=== PATIENT | female | born 1950 | race Caucasian/White ===

== ENCOUNTER → 2018-10-08 10:57 | Outpatient (CLI) | payer MEDICARE, OTHER, SELFPAY ==
--- NOTE | 2018-10-08 | DI.MRI.S_ITS ---
PROCEDURE: MR ANKLE RT WO CON INDICATIONS: Unspecified injury of right foot TECHNIQUE: Noncontrast sagittal T1 spin echo and T2 fast spin echo with fat saturation, axial proton density fast spin echo and T2 fast spin echo with fat saturation, coronal T1 spin echo and T2 fast spin echo with fat saturation through the ankle/hindfoot. COMPARISON: None. FINDINGS: Image quality: Excellent. Bones and joints: No bone marrow contusions or fractures. Small plantar calcaneal enthesophyte is seen. No hindfoot coalitions. No osteochondral injuries of the talar dome. Small amount of tibiotalar and subtalar joint fluid is seen, no gross loose body. Mild soft tissue swelling and edema surrounding ankle joint is seen. Medial structures: Low-grade tenosynovitis of posterior tibial tendon at the level of the subtalar joint is seen. The flexor digitorum longus, and flexor hallucis longus tendons are intact. The posterior tibial neurovascular bundle appears normal within the tarsal tunnel, without extrinsic mass effect. The deep layer (anterior and posterior tibiotalar ligaments) and superficial layer (tibionavicular, tibiospring, and tibiocalcaneal ligaments) of the deltoid ligament appear normal. There is moderate grade sprain/partial thickness tear involving the spring ligament complex. Lateral structures: The anterior talofibular, calcaneofibular, and posterior talofibular ligaments appear intact. More superiorly, the anterior and posterior tibiofibular ligaments appear intact, as is the intermalleolar ligament. The tibiofibular syndesmosis is normal in width at 2 mm or less. The peroneus longus and brevis tendons demonstrate normal location and morphology. Adjacent bony peroneal tubercle and retrotrochlear prominence are normal in size. The sinus tarsi demonstrates normal fatty signal, without edema, fibrosis, or cyst formation. Visualized sinus tarsi components (cervical ligament, interosseous talocalcaneal ligament, roots of the inferior extensor retinaculum) appear normal. The calcaneonavicular and calcaneocuboid components of the bifurcate ligament appear intact. The dorsal calcaneocuboid ligament appears intact. Anterior structures: The tibialis anterior, extensor hallucis longus, and extensor digitorum longus tendons appear intact. The dorsal talonavicular ligament appears intact. Posterior and plantar structures: Achilles tendon is intact. Very mild thickening of the plantar aponeurosis near its insertion on plantar calcaneus. No abductor digiti quinti muscle atrophy to suggest Hall neuropathy. IMPRESSION: 1. No fracture or dislocation. No marrow edema. Small plantar calcaneal enthesophyte with mildly thickened adjacent plantar fascia and suggest clinical correlation for low-grade plantar fasciitis. 2. Low-grade tenosynovitis involving the posterior tibial tendon at the level of subtalar joint. No ankle tendon rupture. 3. Moderate grade sprain/partial thickness tear involving the spring ligament complex. Rest of ankle ligaments are grossly intact. 4. Mild soft tissue swelling around ankle joint. Small amount of ankle joint effusion, no gross loose body. Dictated by: Wilmar Joy M.D. on 10/08/2018 at 12:24 Approved by: Wilmar Joy M.D. on 10/08/2018 at 12:35
== END ==
PROVIDERS: PCP Family Medicine; Visit Provider Podiatrist
DX: S99.921A Unspecified injury of right foot, initial encounter (principal); M65.871 Other synovitis and tenosynovitis, right ankle and foot; M77.31 Calcaneal spur, right foot; S93.491A Sprain of other ligament of right ankle, initial encounter; M79.89 Other specified soft tissue disorders; R26.2 Difficulty in walking, not elsewhere classified; M79.671 Pain in right foot
CPT/HCPCS: 73721

== ENCOUNTER → 2020-07-12 09:36 | Outpatient (CLI) | payer MEDICARE, OTHER, SELFPAY ==
--- NOTE | 2020-07-12 09:39 | DI.MRI.S_ITS ---
PROCEDURE: MR SHOULDER LT WO CON INDICATIONS: Pain in left shoulder TECHNIQUE: Noncontrast oblique coronal T2 fast spin echo with fat saturation, oblique sagittal T1 spin echo and T2 fast spin echo with fat saturation, axial T1 spin echo and T2 fast spin echo with fat saturation through the shoulder. COMPARISON: None. FINDINGS: Rotator cuff: Supraspinatus and infraspinatus tendinopathy with low-grade bursal and articular surface fraying. Small partial-thickness articular sided tear of supraspinatus tendon at the junction of the critical zone and footprint there is also subscapularis tendinopathy and interstitial tearing, thickening. The teres minor tendon appears intact. No atrophy of the rotator cuff muscles although there is fatty infiltration of the infraspinatus.. Bones and bursae: No bone marrow contusions or fractures. Moderate acromioclavicular joint degeneration. Mild glenohumeral joint degeneration Acromion demonstrates conventional anatomy, without an os acromiale. Moderate subacromial-subdeltoid bursitis. Capsule and soft tissues: Labrum: Ill-defined macerated tear involving the superior , anterior, and anteroinferior segments of the labrum. There is thickening of the inferior glenohumeral ligament which is not well visualized. This finding could be chronic. Long head of the biceps tendon intact. The rotator interval appears normal, without fibrosis. Coracohumeral ligament intact. IMPRESSION: Small partial thickness articular sided tear of the supraspinatus tendon, and articular and bursal surface fraying. Subscapularis tendinopathy and interstitial tearing, and thickening. Moderate subacromial-subdeltoid bursitis Circumferential ill-defined macerated tear of the labrum involving the superior, anterior and anteroinferior segments. Age-indeterminate sprain of the inferior glenohumeral ligament. Dictated by: Kingsley Mills M.D. on 07/12/2020 at 10:44 Approved by: Kingsley Mills M.D. on 07/12/2020 at 10:58
== END ==
PROVIDERS: PCP Physician Assistant Medical; Referring Provider Family Medicine; Visit Provider Family Medicine
DX: M25.512 Pain in left shoulder (principal); S46.812A Strain of other muscles, fascia and tendons at shoulder and upper arm level, left arm, initial encounter; M75.52 Bursitis of left shoulder; S43.432A Superior glenoid labrum lesion of left shoulder, initial encounter
CPT/HCPCS: 73221

== ENCOUNTER 2020-12-01 12:44 | Emergency (ER) | payer MEDICARE, OTHER, SELFPAY ==
[2020-12-01] VITALS (32 sets, daily range): BP systolic 119–183; BP diastolic 57–84; PULSE 78–92; RESP 20–40; TEMP 31.5–37.8; O2SAT 35–96
--- NOTE | 2020-12-01 13:01 | DI.RAD.S_ITS ---
PROCEDURE: XR CHEST 1V INDICATIONS: Short of breath AND CENTAL LINE PLACEMENT TECHNIQUE: One view of the chest was acquired. COMPARISON: [facility], , CHEST 2 VIEW, 08/11/2008, 15:58. FINDINGS: Surgical changes and devices: There is a right-sided central line seen, with the tip overlying the inferior aspect of the superior vena cava, 1-2 cm above the cavoatrial junction. Lungs and pleura: Severe bilateral patchy interstitial type infiltrates are seen. Low lung volumes are noted. This causes a crowded appearance to the lung markings and limits evaluation. No pleural effusions or pneumothorax. Mediastinum: Cardiac and mediastinal silhouettes are partially obscured, yet are regarded to be mildly enlarged. Bones and chest wall: No suspicious bony lesions. Age-appropriate bony degenerative changes are seen. Overlying soft tissues appear unremarkable. IMPRESSION: Bilateral interstitial infiltrates are seen. Please consider COVID pneumonia. A right-sided central line is seen, tip overlying the inferior aspect of the superior vena cava. Dictated by: Willem Rodriges M.D. on 12/01/2020 at 12:41 Approved by: Willem Rodriges M.D. on 12/01/2020 at 12:42
--- NOTE | 2020-12-01 13:38 | ED_ITS ---
HPI - General Adult General Chief complaint: Shortness of Breath/Dyspnea Stated complaint: severe dehydrated/altered mental status/diabetic Time Seen by Provider: 12/01/20 13:01 History of Present Illness HPI narrative: 70-year-old woman brought in by her daughter with a known history of COVID she has been sick for the last week additional medical issues include diabetes, hypertension, hyperlipidemia. She is in extreme respiratory distress, extremely fatigued has difficulty answering questions and remainder of history is not obtainable at this time. Related Data Home Medications Medication Instructions Recorded Confirmed insulin glargine 100 unit/mL 50 unit SQ QDAY #0 09/19/11 12/01/20 subcutaneous solution (Lantus U-100 Insulin) lisinopril 5 mg tablet 5 mg PO QDAY #0 09/19/11 12/01/20 simvastatin 20 mg tablet 20 mg PO HS #0 09/19/11 benzonatate 100 mg capsule 100 mg PO TID 12/01/20 12/01/20 glimepiride 2 mg tablet 2 mg PO DAILY 12/01/20 12/01/20 insulin glulisine U-100 100 5 unit SUBCUT QACDINNER 12/01/20 12/01/20 unit/mL subcutaneous cartridge loperamide 2 mg tablet (Imodium 2 mg PO Q6H PRN 12/01/20 12/01/20 A-D) rosuvastatin 10 mg tablet 10 mg PO DAILY 12/01/20 12/01/20 Allergies Allergy/AdvReac Type Severity Reaction Status Date / Time cephalexin [From KEFLEX] Allergy Intermediate HIVES Verified 12/01/20 13:42 Review of Systems Review of Systems ROS Unobtainable: Unobtainable due to medical condition Patient History Medical History COVID-19 Diabetes Hyperlipidemia Hypertension Exam Narrative Exam Narrative: General: Acute respiratory distress oxygen saturation 34% on room air, confused HEENT: Dry mucous membranes, normal sclera with reactive pupils, Neck: No JVD, supple, completely collapsible internal jugular vein Respiratory: Lungs with mild scattered wheeze and pops throughout all lung reece, poor respiratory movement Cardiac: Regular rate and rhythm no murmurs no bruits Abdomen: Obese, Soft, no pain behaviors with palpation, no flank pain Skin: Mottled and cool Neurologic: Moving all extremities, minimal response to questions Extremities: No trauma, mottled arms and legs to upper thighs and torso Psych: Acutely altered Initial Vital Signs Initial Vital Signs: Vital Signs Temperature 100.1 F H 12/01/20 12:44 Pulse Rate 82 12/01/20 12:44 Respiratory Rate 40 H 12/01/20 12:44 Blood Pressure 183/79 H 12/01/20 12:44 Pulse Oximetry 35 L 12/01/20 12:44 Course Orders Ordered: ED Orders 12/01/20 13:01 XR chest 1V Stat Arterial Blood Gas Stat High flow/High humidity nasal STAT 12/01/20 13:16 Arterial Blood Gas Stat 12/01/20 13:28 Complete Blood Count AUTO DIFF Stat Comprehensive Metabolic Panel Stat D Dimer Stat Ferritin Stat Magnesium Stat NT-proBNP (BNP-Adult 18+) Stat Partial Thromboplastin Time DAILY Procalcitonin Stat Prothrombin Time INR Stat Troponin & CK Cardiac Panel Stat 12/01/20 13:34 Respiratory Panel (Film Array) Stat 12/01/20 13:37 Blood Culture Stat 12/01/20 13:39 High flow/High humidity nasal STAT 12/01/20 16:02 EKG-12 Lead Stat 12/01/20 16:18 Arterial Blood Gas Stat 12/01/20 16:20 Comprehensive Metabolic Panel Stat Troponin I Stat 12/01/20 17:15 Partial Thromboplastin Time Stat 12/01/20 23:15 PTT [Partial Thromboplastin Time] Q6H 12/02/20 05:00 Hemoglobin and Hematocrit DAILY 12/02/20 05:15 PTT [Partial Thromboplastin Time] Q6H 12/02/20 11:15 PTT [Partial Thromboplastin Time] Q6H 12/02/20 17:15 PTT [Partial Thromboplastin Time] Q6H Partial Thromboplastin Time DAILY 12/03/20 17:15 Partial Thromboplastin Time DAILY 12/04/20 17:15 Partial Thromboplastin Time DAILY 12/05/20 17:15 Partial Thromboplastin Time DAILY 12/06/20 17:15 Partial Thromboplastin Time DAILY 12/07/20 17:15 Partial Thromboplastin Time DAILY Sodium Chloride (Normal Saline 0.9%) 1,000 mls @ 150 mls/hr IV CONT KATHLEEN Heparin Sodium/Dextrose (Heparin Drip) 25,000 unit in 500 mls @ 17.745 mls/hr IV CONT KATHLEEN; Protocol Last Admin: 12/01/20 17:37 Dose: 12 units/kg/hr, 17.745 mls/hr Documented by: Discontinued Medications Albuterol (Albuterol 2.5 Mg/3 Ml Neb (Adult)) 2.5 mg INH NOW ONE Stop: 12/01/20 13:05 Last Admin: 12/01/20 15:17 Dose: 2.5 mg Documented by: HERNESTO Dexamethasone (Dexamethasone 10 Mg/Ml Vial) 6 mg IV NOW ONE Stop: 12/01/20 16:05 Last Admin: 12/01/20 16:22 Dose: 6 mg Documented by: DEVIN Heparin Sodium (Porcine) (Heparin 5,000 Unit/Ml Vial) 4,000 unit IV NOW ONE Stop: 12/01/20 17:15 Last Admin: 12/01/20 17:35 Dose: 4,000 unit Documented by: Sodium Chloride (Normal Saline 0.9%) 1,000 mls @ 1,000 mls/hr IV BOLUS ONE Stop: 12/01/20 14:38 Last Infusion: 12/01/20 15:05 Dose: 0 mls/hr Documented by: Admin: 12/01/20 13:45 Dose: 1,000 mls/hr Documented by: DEVIN Ceftriaxone Sodium 2,000 mg/ (Sodium Chloride) 100 mls @ 200 mls/hr IV NOW ONE Stop: 12/01/20 16:02 Last Admin: 12/01/20 16:20 Dose: 200 mls/hr Documented by: DEVIN Azithromycin 500 mg/ Dextrose 250 mls @ 250 mls/hr IV NOW ONE Stop: 12/01/20 16:02 Last Admin: 12/01/20 17:31 Dose: 250 mls/hr Documented by: Sodium Chloride (Normal Saline 0.9%) 1,000 mls @ 1,000 mls/hr IV BOLUS ONE Stop: 12/01/20 17:00 Last Admin: 12/01/20 16:22 Dose: 1,000 mls/hr Documented by: DEVIN Vital Signs Vital signs: Vital Signs - 8 hr 12/01/20 12:44 12/01/20 13:02 12/01/20 13:03 Temperature 100.1 F H Pulse Rate 82 85 86 Respiratory Rate 40 H Blood Pressure 183/79 H 152/71 H 155/75 H Pulse Oximetry 35 L 90 L 91 12/01/20 13:15 12/01/20 13:30 12/01/20 13:45 Temperature Pulse Rate 91 H 92 H 86 Respiratory Rate 36 H Blood Pressure 183/79 H Pulse Oximetry 90 L 92 95 12/01/20 14:00 12/01/20 14:01 12/01/20 14:15 Temperature Pulse Rate 83 83 84 Respiratory Rate 31 H 29 H 28 H Blood Pressure 137/69 132/65 Pulse Oximetry 96 96 95 12/01/20 14:30 12/01/20 14:44 12/01/20 14:45 Temperature Pulse Rate 84 90 87 Respiratory Rate 36 H 30 H Blood Pressure 130/65 133/67 Pulse Oximetry 96 94 94 12/01/20 15:00 12/01/20 15:15 12/01/20 15:16 Temperature Pulse Rate 89 84 81 Respiratory Rate 28 H 28 H 24 Blood Pressure 167/84 H 142/64 H Pulse Oximetry 92 92 91 12/01/20 15:17 12/01/20 15:27 12/01/20 15:30 Temperature Pulse Rate 80 81 81 Respiratory Rate 26 H 26 H 22 Blood Pressure 121/60 Pulse Oximetry 91 90 L 90 L 12/01/20 15:45 12/01/20 16:00 12/01/20 16:15 Temperature Pulse Rate 84 80 84 Respiratory Rate 20 35 H 31 H Blood Pressure 133/65 122/61 136/71 Pulse Oximetry 92 92 12/01/20 16:30 12/01/20 16:45 12/01/20 17:00 Temperature Pulse Rate 83 83 78 Respiratory Rate 33 H 38 H 35 H Blood Pressure 135/71 Pulse Oximetry 91 90 L 91 12/01/20 17:15 12/01/20 17:30 12/01/20 17:45 Temperature Pulse Rate 79 85 86 Respiratory Rate 34 H 35 H 36 H Blood Pressure Pulse Oximetry 93 85 L 12/01/20 17:49 12/01/20 18:00 12/01/20 18:15 Temperature Pulse Rate 85 80 82 Respiratory Rate 30 H 31 H 36 H Blood Pressure 137/65 119/57 L 146/73 H Pulse Oximetry 79 L 86 L 86 L 12/01/20 18:25 12/01/20 18:30 Temperature Pulse Rate 80 Respiratory Rate 37 H Blood Pressure 146/73 H 139/69 Pulse Oximetry 93 Medical Decision Making Lab Data Result diagrams: 12/01/20 13:28 12/01/20 16:20 Labs: Lab Results 12/01/20 12/01/20 12/01/20 Range/Units 13:16 13:28 13:28 WBC 14.0 H (4.5-11.0) X10^3/uL RBC 3.71 L (4.0-5.2) X10^6/uL Hgb 10.8 L (12.0-16.0) g/dL Hct 32.7 L (36-46) % MCV 88.1 (80-100) fL MCH 29.1 (26-34) PG MCHC 33.0 (30-36) % RDW 13.1 (11.6-14.8) % Plt Count 290 (150-400) X10^3/uL Neut % (Auto) 90.3 H (50-75) % Lymph % (Auto) 5.4 L (25-40) % [place] % (Auto) 4.0 (3-14) % Eos % (Auto) 0.0 L (2-4) % Baso % (Auto) 0.3 (0-2) % Neut # (Auto) 12979 H (3170-1457) /uL Lymph # (Auto) 800 L (4969-9008) /uL [place] # (Auto) 600 (0-900) /uL Eos # (Auto) 0 (0-450) /uL Baso # (Auto) 0 (0-100) /uL PT 12.6 (10.1-12.7) SECONDS INR 1.1 (0.9-1.3) APTT (26.4-36.2) SECONDS D-Dimer (<230) ng/mL ABG pH 7.40 (7.35-7.45) ABG pCO2 33.5 L (35-45) mmHg ABG pO2 58 L (80-100) mmHg ABG HCO3 21 L (22-26) mmol/L ABG Total CO2 22 (21-31) mmol/L ABG O2 Saturation 90 L (95-100) % ABG Base Excess -4.0 L (-2-2) mmol/L FiO2 100 Sodium (137-145) mmol/L Potassium (3.4-5.1) mmol/L Chloride (98-107) mmol/L Carbon Dioxide (22-32) mmol/L BUN (7-17) mg/dL Creatinine (0.52-1.04) mg/dL Estimated GFR (>60) mL/min BUN/Creatinine Ratio (6-22) Glucose (80-110) mg/dL Calcium (8.4-10.2) mg/dL Magnesium (1.6-2.3) mg/dL Ferritin (11-264) ng/mL Total Bilirubin (0.2-1.3) mg/dL AST (14-36) IU/L ALT (<35) IU/L Alkaline Phosphatase (38-126) U/L Total Creatine Kinase (30-135) U/L CK-MB (CK-2) (<2.37) ng/mL CK-MB (CK-2) Rel Index (1.5-5.0) % Troponin I (0.01-0.034) ng/mL NT-Pro-B Natriuret Pep (<125) pg/mL Total Protein (6.3-8.2) g/dL Albumin (3.5-5.0) g/dL Globulin (1.7-4.1) g/dL Albumin/Globulin Ratio (1.0-2.8) Procalcitonin (<0.5) ng/mL Chlamy pneumoniae PCR (Not Detect) Adenovirus (PCR) (Not Detect) B. pertussis DNA (PCR) (Not Detecte) B.parapertussis DNA PCR (Not Detecte) Coronavirus OC43 (PCR) (Not Detect) Coronavirus HKU1 (PCR) (Not Detect) Coronavirus 229E (PCR) (Not Detect) SARS-CoV-2 (PCR) (Not Detecte) Coronavirus NL63 (PCR) (Not Detect) Human Metapneumovir PCR (Not Detect) Influenza Type A (PCR) (Not Detect) Influenza Type B (PCR) (Not Detect) M. pneumoniae (PCR) (Not Detect) Parainfluenza 1 (PCR) (Not Detect) Parainfluenza 2 (PCR) (Not Detect) Parainfluenza 3 (PCR) (Not Detect) Parainfluenza 4 (PCR) (Not Detect) RSV (PCR) (Not Detect) Entero/Rhino (PCR) (Not Detect) 12/01/20 12/01/20 12/01/20 Range/Units 13:28 13:28 13:28 WBC (4.5-11.0) X10^3/uL RBC (4.0-5.2) X10^6/uL Hgb (12.0-16.0) g/dL Hct (36-46) % MCV (80-100) fL MCH (26-34) PG MCHC (30-36) % RDW (11.6-14.8) % Plt Count (150-400) X10^3/uL Neut % (Auto) (50-75) % Lymph % (Auto) (25-40) % [place] % (Auto) (3-14) % Eos % (Auto) (2-4) % Baso % (Auto) (0-2) % Neut # (Auto) (1307-9910) /uL Lymph # (Auto) (8078-7063) /uL [place] # (Auto) (0-900) /uL Eos # (Auto) (0-450) /uL Baso # (Auto) (0-100) /uL PT (10.1-12.7) SECONDS INR (0.9-1.3) APTT 26 L (26.4-36.2) SECONDS D-Dimer 1766 H (<230) ng/mL ABG pH (7.35-7.45) ABG pCO2 (35-45) mmHg ABG pO2 (80-100) mmHg ABG HCO3 (22-26) mmol/L ABG Total CO2 (21-31) mmol/L ABG O2 Saturation (95-100) % ABG Base Excess (-2-2) mmol/L FiO2 Sodium 129 L (137-145) mmol/L Potassium 6.0 H (3.4-5.1) mmol/L Chloride 99 (98-107) mmol/L Carbon Dioxide 23 (22-32) mmol/L BUN 56 H (7-17) mg/dL Creatinine 1.77 H (0.52-1.04) mg/dL Estimated GFR 28.5 L (>60) mL/min BUN/Creatinine Ratio 31.6 H (6-22) Glucose 314 H (80-110) mg/dL Calcium 8.6 (8.4-10.2) mg/dL Magnesium 2.6 H (1.6-2.3) mg/dL Ferritin 919 H (11-264) ng/mL Total Bilirubin 0.4 (0.2-1.3) mg/dL AST 47 H (14-36) IU/L ALT 20 (<35) IU/L Alkaline Phosphatase 133 H (38-126) U/L Total Creatine Kinase 223 H (30-135) U/L CK-MB (CK-2) 1.59 (<2.37) ng/mL CK-MB (CK-2) Rel Index 0.7 L (1.5-5.0) % Troponin I 0.149 H* (0.01-0.034) ng/mL NT-Pro-B Natriuret Pep 1790 H (<125) pg/mL Total Protein 6.7 (6.3-8.2) g/dL Albumin 3.4 L (3.5-5.0) g/dL Globulin 3.3 (1.7-4.1) g/dL Albumin/Globulin Ratio 1.0 (1.0-2.8) Procalcitonin 2.18 H (<0.5) ng/mL Chlamy pneumoniae PCR (Not Detect) Adenovirus (PCR) (Not Detect) B. pertussis DNA (PCR) (Not Detecte) B.parapertussis DNA PCR (Not Detecte) Coronavirus OC43 (PCR) (Not Detect) Coronavirus HKU1 (PCR) (Not Detect) Coronavirus 229E (PCR) (Not Detect) SARS-CoV-2 (PCR) (Not Detecte) Coronavirus NL63 (PCR) (Not Detect) Human Metapneumovir PCR (Not Detect) Influenza Type A (PCR) (Not Detect) Influenza Type B (PCR) (Not Detect) M. pneumoniae (PCR) (Not Detect) Parainfluenza 1 (PCR) (Not Detect) Parainfluenza 2 (PCR) (Not Detect) Parainfluenza 3 (PCR) (Not Detect) Parainfluenza 4 (PCR) (Not Detect) RSV (PCR) (Not Detect) Entero/Rhino (PCR) (Not Detect) 12/01/20 12/01/2012/01/21 Range/Units 13:34 13:34 16:20 WBC (4.5-11.0) X10^3/uL RBC (4.0-5.2) X10^6/uL Hgb (12.0-16.0) g/dL Hct (36-46) % MCV (80-100) fL MCH (26-34) PG MCHC (30-36) % RDW (11.6-14.8) % Plt Count (150-400) X10^3/uL Neut % (Auto) (50-75) % Lymph % (Auto) (25-40) % [place] % (Auto) (3-14) % Eos % (Auto) (2-4) % Baso % (Auto) (0-2) % Neut # (Auto) (3391-4959) /uL Lymph # (Auto) (9181-8891) /uL [place] # (Auto) (0-900) /uL Eos # (Auto) (0-450) /uL Baso # (Auto) (0-100) /uL PT (10.1-12.7) SECONDS INR (0.9-1.3) APTT (26.4-36.2) SECONDS D-Dimer (<230) ng/mL ABG pH (7.35-7.45) ABG pCO2 (35-45) mmHg ABG pO2 (80-100) mmHg ABG HCO3 (22-26) mmol/L ABG Total CO2 (21-31) mmol/L ABG O2 Saturation (95-100) % ABG Base Excess (-2-2) mmol/L FiO2 Sodium (137-145) mmol/L Potassium (3.4-5.1) mmol/L Chloride (98-107) mmol/L Carbon Dioxide (22-32) mmol/L BUN (7-17) mg/dL Creatinine (0.52-1.04) mg/dL Estimated GFR (>60) mL/min BUN/Creatinine Ratio (6-22) Glucose (80-110) mg/dL Calcium (8.4-10.2) mg/dL Magnesium (1.6-2.3) mg/dL Ferritin (11-264) ng/mL Total Bilirubin (0.2-1.3) mg/dL AST (14-36) IU/L ALT (<35) IU/L Alkaline Phosphatase (38-126) U/L Total Creatine Kinase (30-135) U/L CK-MB (CK-2) (<2.37) ng/mL CK-MB (CK-2) Rel Index (1.5-5.0) % Troponin I 0.246 H* (0.01-0.034) ng/mL NT-Pro-B Natriuret Pep (<125) pg/mL Total Protein (6.3-8.2) g/dL Albumin (3.5-5.0) g/dL Globulin (1.7-4.1) g/dL Albumin/Globulin Ratio (1.0-2.8) Procalcitonin (<0.5) ng/mL Chlamy pneumoniae PCR Not detected (Not Detect) Adenovirus (PCR) Not detected (Not Detect) B. pertussis DNA (PCR) Not detected (Not Detecte) B.parapertussis DNA PCR Not detected (Not Detecte) Coronavirus OC43 (PCR) Not detected (Not Detect) Coronavirus HKU1 (PCR) Not detected (Not Detect) Coronavirus 229E (PCR) Not detected (Not Detect) SARS-CoV-2 (PCR) Detected H Cancelled (Not Detecte) Coronavirus NL63 (PCR) Not detected (Not Detect) Human Metapneumovir PCR Not detected (Not Detect) Influenza Type A (PCR) Not detected (Not Detect) Influenza Type B (PCR) Not detected (Not Detect) M. pneumoniae (PCR) Not detected (Not Detect) Parainfluenza 1 (PCR) Not detected (Not Detect) Parainfluenza 2 (PCR) Not detected (Not Detect) Parainfluenza 3 (PCR) Not detected (Not Detect) Parainfluenza 4 (PCR) Not detected (Not Detect) RSV (PCR) Not detected (Not Detect) Entero/Rhino (PCR) Not detected (Not Detect) 12/01/20 Range/Units 16:20 WBC (4.5-11.0) X10^3/uL RBC (4.0-5.2) X10^6/uL Hgb (12.0-16.0) g/dL Hct (36-46) % MCV (80-100) fL MCH (26-34) PG MCHC (30-36) % RDW (11.6-14.8) % Plt Count (150-400) X10^3/uL Neut % (Auto) (50-75) % Lymph % (Auto) (25-40) % [place] % (Auto) (3-14) % Eos % (Auto) (2-4) % Baso % (Auto) (0-2) % Neut # (Auto) (3364-7801) /uL Lymph # (Auto) (6498-3800) /uL [place] # (Auto) (0-900) /uL Eos # (Auto) (0-450) /uL Baso # (Auto) (0-100) /uL PT (10.1-12.7) SECONDS INR (0.9-1.3) APTT (26.4-36.2) SECONDS D-Dimer (<230) ng/mL ABG pH (7.35-7.45) ABG pCO2 (35-45) mmHg ABG pO2 (80-100) mmHg ABG HCO3 (22-26) mmol/L ABG Total CO2 (21-31) mmol/L ABG O2 Saturation (95-100) % ABG Base Excess (-2-2) mmol/L FiO2 Sodium 131 L (137-145) mmol/L Potassium 6.0 H (3.4-5.1) mmol/L Chloride 102 (98-107) mmol/L Carbon Dioxide 23 (22-32) mmol/L BUN 54 H (7-17) mg/dL Creatinine 1.62 H (0.52-1.04) mg/dL Estimated GFR 31.6 L (>60) mL/min BUN/Creatinine Ratio 33.3 H (6-22) Glucose 266 H (80-110) mg/dL Calcium 8.3 L (8.4-10.2) mg/dL Magnesium (1.6-2.3) mg/dL Ferritin (11-264) ng/mL Total Bilirubin 0.4 (0.2-1.3) mg/dL AST 47 H (14-36) IU/L ALT 19 (<35) IU/L Alkaline Phosphatase 121 (38-126) U/L Total Creatine Kinase (30-135) U/L CK-MB (CK-2) (<2.37) ng/mL CK-MB (CK-2) Rel Index (1.5-5.0) % Troponin I (0.01-0.034) ng/mL NT-Pro-B Natriuret Pep (<125) pg/mL Total Protein 6.5 (6.3-8.2) g/dL Albumin 3.2 L (3.5-5.0) g/dL Globulin 3.3 (1.7-4.1) g/dL Albumin/Globulin Ratio 1.0 (1.0-2.8) Procalcitonin (<0.5) ng/mL Chlamy pneumoniae PCR (Not Detect) Adenovirus (PCR) (Not Detect) B. pertussis DNA (PCR) (Not Detecte) B.parapertussis DNA PCR (Not Detecte) Coronavirus OC43 (PCR) (Not Detect) Coronavirus HKU1 (PCR) (Not Detect) Coronavirus 229E (PCR) (Not Detect) SARS-CoV-2 (PCR) (Not Detecte) Coronavirus NL63 (PCR) (Not Detect) Human Metapneumovir PCR (Not Detect) Influenza Type A (PCR) (Not Detect) Influenza Type B (PCR) (Not Detect) M. pneumoniae (PCR) (Not Detect) Parainfluenza 1 (PCR) (Not Detect) Parainfluenza 2 (PCR) (Not Detect) Parainfluenza 3 (PCR) (Not Detect) Parainfluenza 4 (PCR) (Not Detect) RSV (PCR) (Not Detect) Entero/Rhino (PCR) (Not Detect) Imaging Data Chest x-ray: Radiologist's Impression: FINDINGS: Surgical changes and devices: There is a right-sided central line seen, with the tip overlying the inferior aspect of the superior vena cava, 1-2 cm above the cavoatrial junction. Lungs and pleura: Severe bilateral patchy interstitial type infiltrates are seen. Low lung volumes are noted. This causes a crowded appearance to the lung markings and limits evaluation. No pleural effusions or pneumothorax. Mediastinum: Cardiac and mediastinal silhouettes are partially obscured, yet are regarded to be mildly enlarged. Bones and chest wall: No suspicious bony lesions. Age-appropriate bony degenerative changes are seen. Overlying soft tissues appear unremarkable. IMPRESSION: Bilateral interstitial infiltrates are seen. Please consider COVID pneumonia. A right-sided central line is seen, tip overlying the inferior aspect of the superior vena cava. Dictated by: Willem Rodriges M.D. on 12/01/2020 at 12:41 MDM Narrative Medical decision making narrative: 70-year-old woman with known COVID presents in respiratory extremis with oxygen saturations at 34%. With 100% non- rebreather she was up to the low 90s and with high-flow oxygen is in the 89-91% range. Patient is awake alert enough to have a very clear end of life discussion. She absolutely wants to be full code and full intubation if required. She was very clear on this. After initial lab review she is obviously volume depleted with acute kidney injury potassium of 6 bilateral pneumonia that is very likely COVID. Will give her another L of fluid recheck labs obtain an EKG and recheck troponin. Ceftriaxone and azithromycin as well as Decadron and re-evaluate after that to see which hospital and level of care will be most appropriate for her. 330 reviewed with [facility]. Will wait for 2nd round of labs to come back she may will be too critical for care at [place]. 400 no bed capacity is [facility] in [facility],. Krissy obrien in [place] may have ICU COVID bed available 515 Second troponin returns at 0.246. Heparin will be started. EKG shows no acute changes. All consistent with non STEMI verses demand ischemia. D-dimer is elevated. At this point she is too critically ill to who take to the CT scanner heparin is started for the non STEMI so treatment is already initiated. Awaiting [facility] results and call back from Krissy Obrien [address] Dr Watson, Director Of Customer Acquisition Jaye Obrien. Accepts care. Findings are reviewed. [facility] will be contacted. Will continue to try avoid intubation. 605 Air lift cannot do high-flow for transport. Will trial BiPAP right now to see how she tolerates this to see we can avoid intubation for transport. If she does not tolerate BiPAP will need to be intubated prior to transport 615 Discussed care and possible intubation with , Rashi Hathaway [phone]. ( is likely covid + positive too. He seems to be improving) 640 Airlift here. Pt has been on bipap for about 15 min and seems to be tolerating it. sats 92% with 100% O2 Critical Care Time Critical Care Time Critical Care Time: Yes Total Critical Care Time: 183 Attestation: Critical care time is separate from other billable procedures. There is a high probability of a significant, sudden or life-threatening deterioration that requires my full and direct attention, intervention and personal management. This critical care time includes consultation with family and other consulting doctors, review of records, and interpretation of data from labs, EKGs and imaging as well as managements of acute respiratory failure secondary to severe COVID pneumonia with ongoing NSTEMI need for transfer with significant natural remedy consultant discussions. Discharge Plan Departure Patient Disposition: [facility] Clinical Impression: COVID-19, Acute non-ST elevation myocardial infarction (NSTEMI) Respiratory failure Qualifiers: Chronicity: acute Respiratory failure complication: hypoxia Qualified Code(s): J96.01 - Acute respiratory failure with hypoxia Prescriptions: No Action simvastatin 20 MG tablet 20 mg PO HS Qty: 0 RF: 0 lisinopril 5 MG tablet 5 mg PO QDAY Qty: 0 RF: 0 Lantus U-100 Insulin 100 UNIT/1 ML solution 50 unit SQ QDAY Qty: 0 RF: 0 glimepiride 2 mg Tablet 2 mg PO DAILY RF: 0 benzonatate 100 mg Capsule 100 mg PO TID RF: 0 loperamide [Imodium A-D] 2 mg Tablet 2 mg PO Q6H PRN (Reason: Diarrhea) RF: 0 rosuvastatin 10 mg Tablet 10 mg PO DAILY RF: 0 Apidra U-100 Insulin 100 unit/mL Cartridge 5 unit SUBCUT QACDINNER RF: 0 Referrals: Asya Pardo PA-C [Primary Care Provider] -
[2020-12-01 13:41] LABS: Add Manual Diff / Slide Review NO; Basophils Absolute Auto 0 /uL (0-100); Basophils Percent Auto 0.3 % (0-2); Eosinophils Absolute Auto 0 /uL (0-450); Hematocrit 32.7 % (36-46); Hemoglobin 10.8 g/dL (12.0-16.0); Lymphocytes Absolute Auto 800 /uL (1100-4500); Lymphocytes Percent Auto 5.4 % (25-40); Mean Corpuscular Hemoglobin 29.1 PG (26-34); Mean Corpuscular Volume 88.1 fL (80-100); Monocytes Absolute Auto 600 /uL (0-900); Neutrophils Absolute Auto 12600 /uL (1500-7000); Neutrophils Percent Auto 90.3 % (50-75); Platelet Count 290 X10^3/uL (150-400); Red Blood Cell Count 3.71 X10^6/uL (4.0-5.2); Red Cell Distribution Width 13.1 % (11.6-14.8)
[2020-12-01 13:44] LABS: INR 1.1 (0.9-1.3); Prothrombin Time 12.6 SECONDS (10.1-12.7)
[2020-12-01] MEDS: SODIUM CHLORIDE 0.9% 1,000 ML 1000 ML IV ×2 (13:45→16:22)
--- NOTE | 2020-12-01 13:52 | PC.NURSE ---
pt dx with COVID 7 days ago Pt arrived vbery pale,mottling noted on extremities,RA O2 35%. Pt confused and difficulty following commands initially.
[2020-12-01 13:53] LABS: Alanine Aminotransferase 20 IU/L (<35); Albumin 3.4 g/dL (3.5-5.0); Alkaline Phosphatase 133 U/L (38-126); Aspartate Aminotransferase 47 IU/L (14-36); BUN Creatinine Ratio 31.6 (6-22); Bilirubin Total 0.4 mg/dL (0.2-1.3); Blood Urea Nitrogen 56 mg/dL (7-17); Calcium 8.6 mg/dL (8.4-10.2); Carbon Dioxide 23 mmol/L (22-32); Chloride 99 mmol/L (98-107); Creatine Kinase 223 U/L (30-135); Estimated Glomerular Filt Rate 28.5 mL/min (>60); Globulin 3.3 g/dL (1.7-4.1); Glucose 314 mg/dL (80-110); HEMOLYSIS < 15 (0-50); Magnesium 2.6 mg/dL (1.6-2.3); Sodium 129 mmol/L (137-145); Total Protein 6.7 g/dL (6.3-8.2)
--- NOTE | 2020-12-01 13:53 | PC.NURSE ---
post central line placement
[2020-12-01 14:02] LABS: D Dimer 1766 ng/mL (<230)
[2020-12-01 14:05] LABS: NT-proBNP (BNP-Adult 18+) 1790 pg/mL (<125)
[2020-12-01 14:08] LABS: CKMB % Relative Index 0.7 % (1.5-5.0); Creatine Kinase MB 1.59 ng/mL (<2.37)
[2020-12-01 14:09] LABS: Procalcitonin 2.18 ng/mL (<0.5)
[2020-12-01 14:27] LABS: Ferritin 919 ng/mL (11-264)
[2020-12-01 14:28] LABS: Troponin I 0.149 ng/mL (0.01-0.034)
--- NOTE | 2020-12-01 14:46 | RT ---
Called to Rm 1 for sao2 of 34%. Pt is naresh bradley MD at bedside pt placed on 15LPM NRB and abg drawn. Pt placed on HHFNC without incident and pt laying on left side with Sao2 improvement. Bag mask unit with suction at [facility] functional.
[2020-12-01 15:06] LABS: Fractionated Inspired Oxygen 100; HCO3 ABG 21 mmol/L (22-26); Oxygen Saturation ABG 90 % (95-100); PCO2 ABG 33.5 mmHg (35-45); PO2 ABG 58 mmHg (80-100); TCO2 ABG 22 mmol/L (21-31)
[2020-12-01 15:07] LABS: Adenovirus Not Detected (Not Detect); B. parapertussis Not Detected (Not Detecte); Bordetella pertussis Not Detected (Not Detecte); Chlamydophila pneumoniae Not Detected (Not Detect); Coronavirus 229E Not Detected (Not Detect); Coronavirus HKU1 Not Detected (Not Detect); Coronavirus NL 63 Not Detected (Not Detect); Coronavirus OC43 Not Detected (Not Detect); Human Metapneumovirus Not Detected (Not Detect); Human Rhinovirus/Enterovirus Not Detected (Not Detect); Influenza A Not Detected (Not Detect); Influenza B Not Detected (Not Detect); Mycoplasma pneumoniae Not Detected (Not Detect); Parainfluenza Virus 1 Not Detected (Not Detect); Parainfluenza Virus 2 Not Detected (Not Detect); Parainfluenza Virus 3 Not Detected (Not Detect); Parainfluenza Virus 4 Not Detected (Not Detect); Respiratory Syncytial Virus Not Detected (Not Detect)
[2020-12-01 15:10] LABS: SARS- CoV-2 Detected (Not Detecte)
[2020-12-01] MEDS: ALBUTEROL 2.5 MG/3 ML NEB (ADULT) INH (15:17)
--- NOTE | 2020-12-01 15:26 | RT ---
pt gabbi tx well, on HHFNC and pt on her right side
[2020-12-01] MEDS: cefTRIAXone 2,000 MG in SODIUM CHLORIDE 0.9% 100 ML 200 ML IV (16:20)
[2020-12-01] MEDS: DEXAMETHASONE 10 MG/ML VIAL 6 MG IV (16:22)
--- NOTE | 2020-12-01 16:55 | PC.NURSE ---
Pts gait belt,coat,shoes,underwear,medicine and yellow color watch sent with pts daughter in law
[2020-12-01 17:01] LABS: Troponin I 0.246 ng/mL (0.01-0.034)
[2020-12-01 17:28] LABS: Alanine Aminotransferase 19 IU/L (<35); Albumin 3.2 g/dL (3.5-5.0); Alkaline Phosphatase 121 U/L (38-126); Aspartate Aminotransferase 47 IU/L (14-36); BUN Creatinine Ratio 33.3 (6-22); Bilirubin Total 0.4 mg/dL (0.2-1.3); Blood Urea Nitrogen 54 mg/dL (7-17); Calcium 8.3 mg/dL (8.4-10.2); Carbon Dioxide 23 mmol/L (22-32); Chloride 102 mmol/L (98-107); Estimated Glomerular Filt Rate 31.6 mL/min (>60); Globulin 3.3 g/dL (1.7-4.1); Glucose 266 mg/dL (80-110); HEMOLYSIS < 15 (0-50); Sodium 131 mmol/L (137-145); Total Protein 6.5 g/dL (6.3-8.2)
[2020-12-01] MEDS: AZITHROMYCIN 500 MG in DEXTROSE 5% IN WATER 250 ML IV (17:31)
[2020-12-01] MEDS: HEPARIN 5,000 UNIT/ML VIAL 4000 UNIT IV (17:35)
[2020-12-01] MEDS: HEPARIN DRIP 25,000 UNIT/500 ML IV.SOLN 17.745 UNIT IV (17:37)
--- NOTE | 2020-12-01 17:52 | PC.NURSE ---
Pt turned on side,increased O2 55L and 100% FiO2. Pt O2 slowly increasing from 80%
[2020-12-01 17:58] LABS: PTT Partial Thromboplastin Tim 26 SECONDS (26.4-36.2)
--- NOTE | 2020-12-01 18:33 | PC.NURSE ---
Pt transferred to BIPAP 14/7 100%O2
--- NOTE | 2020-12-01 19:27 | PC.NURSE ---
ATtempted to call report to transfer center,no answer,left a message for them to call me back.
[2020-12-02 09:16] LABS: Acinetobacter baumannii Not Detected (Not Detect); Candida albicans Not Detected (Not Detect); Candida glabrata Not Detected (Not Detect); Candida krusei Not Detected (Not Detect); Candida parapsilosis Not Detected (Not Detect); Candida tropicalis Not Detected (Not Detect); E. coli Not Detected (Not Detect); Enterobacter cloacae complex Not Detected (Not Detect); Enterobacteriaceae species Not Detected (Not Detect); Enterococcus species Not Detected (Not Detect); Haemophilus influenzae Not Detected (Not Detect); KPC (carbapenem-resist gene) Not Detected (Not Detect); Listeria monocytogenes Not Detected (Not Detect); Methicillin-resistant gene Not Detected (Not Detect); Neisseria meningitidis Not Detected (Not Detect); Proteus species Not Detected (Not Detect); Pseudomonas aeruginosa Not Detected (Not Detect); Serratia marcescens Not Detected (Not Detect); Staphylococcus species Detected (Not Detect); Streptococcus agalactiae (Gr B Not Detected (Not Detect); Streptococcus pneumonia Not Detected (Not Detect); Streptococcus pyogenes (Gr A) Not Detected (Not Detect); Streptococcus species Not Detected (Not Detect); Vancomycin-rest genes A/B Not Detected (Not Detect)
[2020-12-03 13:04] LABS: HCO3 ABG 23 mmol/L (22-26); PO2 ABG 60 mmHg (80-100); pH ABG 7.38 (7.35-7.45)
[2020-12-03 13:05] LABS: Fractionated Inspired Oxygen 100; Oxygen Saturation ABG 90 % (95-100); TCO2 ABG 25 mmol/L (21-31)
== END 2020-12-01 19:43 | disposition short-term general hospital (02) ==
PROVIDERS: Physician Assistant; Emergency Provider Emergency Medicine; PCP Physician Assistant Medical
DX: U07.1 COVID-19 (principal); J12.82 Pneumonia due to coronavirus disease 2019; I21.4 Non-ST elevation (NSTEMI) myocardial infarction; J96.01 Acute respiratory failure with hypoxia
CPT/HCPCS: 36415; 36573; 36600; 71045; 80053; 82550; 82553; 82728; 82805; 83735; 83880; 84145; 84484; 85025; 85379; 85610; 85730; 87040; 87150; 87186; 87205; 87633; 93005; 93010; 94640; 94660; 96361; 96365; 96366; 96367; 96368; 96375; 99284; 99291; 99292; J0696; J1100; J1644; J7613

== ENCOUNTER → 2023-03-14 11:03 | Outpatient (CLI) | payer MEDICARE, OTHER, SELFPAY ==
[2020-12-01 18:25] VITALS: PULSE 79; RESP 38; O2SAT 94
--- NOTE | 2023-03-14 11:06 | DI.RAD.S_ITS ---
PROCEDURE: XR CHEST 1V INDICATIONS: Shortness of breath , h/o severe COVID, eval for scarring TECHNIQUE: One view of the chest was acquired. COMPARISON: [facility], OSIEL, XR CHEST 1V, 12/01/2020, 13:07. [facility], CR, CHEST 2 VIEW, 08/11/2008, 15:58. FINDINGS: Surgical changes and devices: None. Lungs and pleura: Bibasilar patchy consolidation. Hyperexpansion of the lungs with flattening of the diaphragm suggestive of obstructive pulmonary disease. No pleural effusions or pneumothorax. Mediastinum: Cardiomegaly. Normal mediastinal contours. Bones and chest wall: No suspicious bony lesions. Overlying soft tissues appear unremarkable. IMPRESSION: Bibasilar patchy consolidation which may represent atelectasis/scar, aspiration and/or pneumonia, in the appropriate clinical context. Dictated by: Jovi Tamez M.D. on 03/14/2023 at 17:11 Approved by: Jovi Tamez M.D. on 03/14/2023 at 17:15
== END ==
PROVIDERS: PCP Physician Assistant Medical; Referring Provider Internal Medicine Critical Care Medicine; Visit Provider Internal Medicine Critical Care Medicine
DX: J84.9 Interstitial pulmonary disease, unspecified (principal); J45.20 Mild intermittent asthma, uncomplicated; R06.09 Other forms of dyspnea; I51.7 Cardiomegaly
CPT/HCPCS: 71045; 99214

== ENCOUNTER → 2023-04-04 09:43 | Outpatient (CLI) | payer MEDICARE, OTHER, SELFPAY ==
[2020-12-01 18:25] VITALS: PULSE 79; RESP 38; O2SAT 94
--- NOTE | 2023-04-04 09:44 | DI.CT.S_ITS ---
PROCEDURE: CT CHEST WO CON INDICATIONS: Diffuse lung disease post covid TECHNIQUE: Noncontrast 5 mm thick sections acquired from the pulmonary apices to the posterior costophrenic angles. 1 mm lung window, 5 mm thick coronal and sagittal and 7 mm axial MIP reformats were then acquired. For radiation dose reduction, the following was used: automated exposure control, adjustment of mA and/or kV according to patient size. COMPARISON: [facility], CT, ABDOMEN/PELVIS WITH CONTRAST, 11/18/2014, 17:29. [facility], CR, XR CHEST 1V, 03/14/2023, 11:09. [facility], CR, XR CHEST 1V, 12/01/2020, 13:07. [facility], CR, CHEST 2 VIEW, 08/11/2008, 15:58. FINDINGS: Image quality: Diagnostic. Lower Neck: No enlarged lymph nodes. Thyroid: No thyroid nodules which require sonographic follow up, per consensus guidelines. Axillae: No enlarged lymph nodes. Chest Wall: Unremarkable. Bones: Unremarkable. Lungs and Pleura: No pneumothorax or pleural effusions. Diffuse ground-glass and curvilinear ground-glass opacity. Suspect that the findings are similar to CXR 03/14/2023. This is improved compared to 2020. Airways are clear. No honeycombing. No consolidative opacity. No significant pulmonary nodules. Heart: Heart size is normal. No pericardial effusion. Thoracic Vessels: The aorta and pulmonary arteries demonstrate normal size. Mediastinum and Gladys: No enlarged lymph nodes. Esophagus: No wall thickening. No hiatal hernia. Upper Abdomen: Visualized upper abdomen solid organs and bowel loops appear normal. IMPRESSION: 1. Diffuse ground-glass opacity, moderate severity. This could be the sequelae of infectious/inflammatory etiology. 2. No significant pulmonary nodules. No pleural effusion. Dictated by: Tomi Perez M.D. on 04/04/2023 at 11:15 Approved by: Tomi Perez M.D. on 04/04/2023 at 11:22
== END ==
PROVIDERS: PCP Physician Assistant Medical; Referring Provider Internal Medicine Critical Care Medicine; Visit Provider Internal Medicine Critical Care Medicine
DX: J84.9 Interstitial pulmonary disease, unspecified (principal)
CPT/HCPCS: 71250

== ENCOUNTER 2023-12-16 14:39 | Emergency (ER) | payer MEDICARE, OTHER, SELFPAY ==
[2020-12-01 18:25] VITALS: PULSE 79; RESP 38; O2SAT 94
[2023-12-16] VITALS (15 sets, daily range): BP systolic 162–197; BP diastolic 77–91; PULSE 62–78; RESP 11–22; TEMP 36.5; O2SAT 92–96; BMI 32.0
--- NOTE | 2023-12-16 14:50 | DI.RAD.S_ITS ---
PROCEDURE: XR CHEST 1V INDICATIONS: chest pain TECHNIQUE: One view of the chest was acquired. COMPARISON: [facility], CR, XR CHEST 1V, 03/14/2023, 11:09. [facility], CR, XR CHEST 1V, 12/01/2020, 13:07. FINDINGS: Surgical changes and devices: None. Lungs and pleura: Again seen is asymmetry of the hemidiaphragms, right higher than left. The left hemidiaphragm is obscured. Mediastinum: Mediastinal contours appear normal. Heart size is normal. Bones and chest wall: No suspicious bony lesions. Overlying soft tissues appear unremarkable. IMPRESSION: Obscuration of the left hemidiaphragm concerning for right lower lobe pneumonia versus effusion. Formal PA and lateral chest radiographs are recommended for further evaluation if this is not congruent with the patient's clinical presentation. Dictated by: Yennifer Bahena M.D. on 12/16/2023 at 14:07 Approved by: Yennifer Bahena M.D. on 12/16/2023 at 14:09
--- NOTE | 2023-12-16 14:50 | EKG_ITS ---
[place] [id number] [place] [id number] Test Date: 2023-12-16 Pat Name: Mikayla Hathaway Department: [facility] Room: Gender: Female [employer]: GONZÁLEZ : 1950 Requested By: Order Number: [id number] Reading MD: Yovany Garcia Measurements Intervals [place] Rate: 72 P: KS: 132 QRS: -7 QRSD: 96 T: 42 QT: 410 QTc: 448 Interpretive Statements Normal sinus rhythm Minimal voltage criteria for LVH, may be normal variant ( Luiz product ) Electronically Signed On 12-16-2023 15:39:05 PDT by Yovany Garcia
[2023-12-16 15:12] LABS: Add Manual Diff / Slide Review NO; Basophils Absolute Auto 100 /uL (0-100); Basophils Percent Auto 0.5 % (0-2); Eosinophils Absolute Auto 0 /uL (0-450); Eosinophils Percent Auto 0.2 % (2-4); Hematocrit 43.9 % (36-46); Hemoglobin 14.9 g/dL (12.0-16.0); Lymphocytes Absolute Auto 2600 /uL (1100-4500); Lymphocytes Percent Auto 18.5 % (25-40); Mean Corpuscular Hemoglobin 30.1 PG (26-34); Mean Corpuscular Volume 88.4 fL (80-100); Monocytes Absolute Auto 400 /uL (0-900); Neutrophils Absolute Auto 10900 /uL (1500-7000); Neutrophils Percent Auto 77.8 % (50-75); Platelet Count 251 X10^3/uL (150-400); Red Blood Cell Count 4.97 X10^6/uL (4.0-5.2); Red Cell Distribution Width 13.1 % (11.6-14.8); White Blood Cell Count 14.1 X10^3/uL (4.5-11.0)
[2023-12-16 15:16] LABS: Prothrombin Time 11.7 SECONDS (9.4-12.5)
[2023-12-16 15:19] LABS: PTT Partial Thromboplastin Tim 27 SECONDS (25.1-36.5)
[2023-12-16 15:20] LABS: Alanine Aminotransferase 25 IU/L (<35); Albumin 4.4 g/dL (3.5-5.0); Albumin Globulin Ratio 1.6 (1.0-2.8); Alkaline Phosphatase 75 U/L (38-126); Aspartate Aminotransferase 24 IU/L (14-36); Bilirubin Total 0.7 mg/dL (0.2-1.3); Blood Urea Nitrogen 32 mg/dL (7-17); Calcium 10.1 mg/dL (8.4-10.2); Carbon Dioxide 28 mmol/L (22-32); Chloride 98 mmol/L (98-107); Creatine Kinase 213 U/L (30-135); Estimated Glomerular Filt Rate 41 mL/min (>60); Globulin 2.7 g/dL (1.7-4.1); Glucose 234 mg/dL (80-110); HEMOLYSIS < 15 (0-50); Lipase 342 U/L (23-300); Potassium 4.4 mmol/L (3.4-5.1); Sodium 135 mmol/L (137-145); Total Protein 7.1 g/dL (6.3-8.2)
[2023-12-16 15:32] LABS: NT-proBNP (BNP-Adult 18+) 275 pg/mL (<125); Troponin I < 0.012 ng/mL (0.01-0.034)
[2023-12-16] MEDS: ONDANSETRON 4 MG/2 ML INJ IV (16:27)
[2023-12-16] MEDS: SODIUM CHLORIDE 0.9% 1,000 ML 1000 ML IV (16:33)
--- NOTE | 2023-12-16 16:49 | ED.NAVMDI ---
HPI - Nausea/Vomiting/Diarrhea General Chief complaint: Nausea/Vomiting/Diarrhea Stated complaint: Throwing up ,Dizzy Time Seen by Provider: 12/16/23 15:37 Source: patient and family Mode of arrival: Ambulatory History of Present Illness HPI Narrative: 73-year-old female with history of diabetes mellitus complains of 4 days duration of nausea and nonbloody emesis, some dizziness without spinning sensation, no chest pain or shortness of breath. No loose stools. No black or red stools. No close contact exposures to persons with similar symptoms. Does not seem to recognize diagnosis of diabetic gastroparesis. Denies fevers, chills, painful or frequent urination. Denies headache, photophobia, neck pain. Denies abdominal pain, diarrhea, black/red stools. No injury, trauma. No new medications or change in medications. Related Data Home Medications Medication Instructions Recorded Confirmed albuterol sulfate 90 mcg/actuation 2 puff inhalation Q4-6H PRN 03/14/23 05/29/23 aerosol inhaler dulaglutide 1.5 mg/0.5 mL 1.5 mg SUBCUT QWEEK 03/14/23 05/29/23 subcutaneous pen injector (Trulicity) insulin glargine 100 unit/mL 50 unit SUBCUT BID 03/14/23 05/29/23 subcutaneous cartridge insulin glulisine U-100 100 12 unit SUBCUT QAM 03/14/23 05/29/23 unit/mL subcutaneous solution (Apidra U-100 Insulin) insulin glulisine U-100 100 18 unit SUBCUT QPM 03/14/23 05/29/23 unit/mL subcutaneous solution (Apidra U-100 Insulin) losartan 50 mg tablet 50 mg PO DAILY 03/14/23 05/29/23 rosuvastatin 10 mg tablet 10 mg PO DAILY 03/14/23 05/29/23 Previous Rx's Medication Instructions Recorded metoclopramide HCl 10 mg tablet 10 mg PO QACHS #20 tabs 12/16/23 (Reglan) Allergies Allergy/AdvReac Type Severity Reaction Status Date / Time cephalexin [From KEFLEX] Allergy Intermediate HIVES Verified 12/16/23 14:48 Review of Systems Review of Systems Narrative: see HPI Patient History Medical History COVID-19 Diabetes Hyperlipidemia Hypertension Social History Smoking Status: Never smoker Smoking Status: Never smoker Substance Use Type: does not use Exam Narrative Exam Narrative: GENERAL: Well-developed patient, in mild distress. HEAD: Atraumatic. Normocephalic. EYES: Pupils equal round and reactive. Extraocular motions intact. No scleral icterus. No injection or drainage. ENT: Nose without bleeding, purulent drainage. Throat without erythema, tonsillar hypertrophy or exudate. Airway patent. NECK: Trachea midline. Non tender CARDIOVASCULAR: Regular rate and rhythm without murmurs, gallops, or rubs. RESPIRATORY: Clear to auscultation. Breath sounds equal bilaterally. No wheezes, rales, or rhonchi. GASTROINTESTINAL: Abdomen soft, non-tender, nondistended. EXTREMITIES: No edema or joint tenderness. BACK: Nontender without deformity or crepitance. No flank tenderness. NEURO: AOx3. Motor function grossly nonfocal SKIN: No rash or erythema of visible areas Initial Vital Signs Initial Vital Signs: Vital Signs Pulse Rate 75 12/16/23 14:45 Pulse Oximetry 96 12/16/23 14:45 Course Orders Ordered: ED Orders 12/16/23 14:50 XR chest 1V Stat EKG-12 Lead Stat 12/16/23 15:02 Complete Blood Count AUTO DIFF Stat Comprehensive Metabolic Panel Stat Lipase Stat Magnesium Stat NT-proBNP (BNP-Adult 18+) Stat PTT Partial Thromboplastin Maxi Stat Prothrombin Time INR Stat Troponin & CK Cardiac Panel Stat 12/16/23 17:04 Urine Culture Stat Urine Microscopic Stat 12/16/23 17:23 CT abdomen pelvis w con Stat 12/16/23 17:24 CT head/brain wo con Stat 12/16/23 17:35 Troponin I Stat Discontinued Medications Sodium Chloride (Normal Saline 0.9%) 1,000 mls @ 1,000 mls/hr IV BOLUS ONE Stop: 12/16/23 17:31 Last Infusion: 12/16/23 18:07 Dose: Infused Documented By: Admin: 12/16/23 16:33 Dose: 1,000 mls/hr Documented By: MAX Ondansetron HCl (Ondansetron 4 Mg/2 Ml Inj) 4 mg IV NOW PRN PRN Reason: Nausea And Vomiting Last Admin: 12/16/23 16:27 Dose: 4 mg Documented By: MAX Ondansetron HCl (Ondansetron 4 Mg Odt) 4 mg SL NOW PRN PRN Reason: Nausea And Vomiting Vital Signs Vital signs: Vital Signs - 8 hr 12/16/23 14:45 12/16/23 14:46 12/16/23 14:46 Temperature Pulse Rate 75 78 Respiratory Rate Blood Pressure 170/82 H Pulse Oximetry 96 93 Oxygen Delivery Method 12/16/23 14:48 12/16/23 15:00 12/16/23 15:06 Temperature 97.7 F Pulse Rate 75 70 67 Respiratory Rate 17 20 11 L Blood Pressure 170/82 H Pulse Oximetry 95 94 95 Oxygen Delivery Method Room Air 12/16/23 15:06 12/16/23 15:30 12/16/23 15:30 Temperature Pulse Rate 66 Respiratory Rate 20 Blood Pressure 162/77 H 168/86 H Pulse Oximetry 94 Oxygen Delivery Method 12/16/23 16:00 12/16/23 16:00 12/16/23 16:30 Temperature Pulse Rate 65 62 Respiratory Rate 21 22 Blood Pressure 182/87 H Pulse Oximetry 93 95 Oxygen Delivery Method 12/16/23 16:30 12/16/23 17:00 12/16/23 17:12 Temperature Pulse Rate 67 Respiratory Rate 21 Blood Pressure 193/91 H 190/89 H 180/86 H Pulse Oximetry 93 Oxygen Delivery Method Room Air Room Air 12/16/23 17:12 12/16/23 17:30 12/16/23 17:30 Temperature Pulse Rate 65 65 Respiratory Rate 21 Blood Pressure 185/90 H Pulse Oximetry 96 95 Oxygen Delivery Method 12/16/23 18:03 12/16/23 18:22 12/16/23 18:22 Temperature Pulse Rate 74 69 Respiratory Rate Blood Pressure 197/89 H Pulse Oximetry 93 Oxygen Delivery Method 12/16/23 18:30 12/16/23 18:30 12/16/23 19:00 Temperature Pulse Rate 67 73 Respiratory Rate Blood Pressure 185/81 H Pulse Oximetry 94 92 Oxygen Delivery Method Room Air 12/16/23 19:00 Temperature Pulse Rate Respiratory Rate Blood Pressure 188/86 H Pulse Oximetry Oxygen Delivery Method MDM - Nausea/Vomiting/Diarrhea Lab Data Attestation: I reviewed the patient's lab results. 12/16/23 15:02 12/16/23 15:02 Labs: Lab Results 12/16/23 12/16/23 12/16/23 Range/Units 15:02 17:04 17:35 WBC 14.1 H (4.5-11.0) X10^3/uL RBC 4.97 (4.0-5.2) X10^6/uL Hgb 14.9 (12.0-16.0) g/dL Hct 43.9 (36-46) % MCV 88.4 (80-100) fL MCH 30.1 (26-34) PG MCHC 34.0 (30-36) % RDW 13.1 (11.6-14.8) % Plt Count 251 (150-400) X10^3/uL Neut % (Auto) 77.8 H (50-75) % Lymph % (Auto) 18.5 L (25-40) % [place] % (Auto) 3.0 (3-14) % Eos % (Auto) 0.2 L (2-4) % Baso % (Auto) 0.5 (0-2) % Neut # (Auto) 26084 H (5610-9676) /uL Lymph # (Auto) 2600 (8104-6673) /uL [place] # (Auto) 400 (0-900) /uL Eos # (Auto) 0 (0-450) /uL Baso # (Auto) 100 (0-100) /uL PT 11.7 (9.4-12.5) SECONDS INR 1.0 (0.9-1.3) APTT 27 (25.1-36.5) SECONDS Sodium 135 L (137-145) mmol/L Potassium 4.4 (3.4-5.1) mmol/L Chloride 98 (98-107) mmol/L Carbon Dioxide 28 (22-32) mmol/L BUN 32 H (7-17) mg/dL Creatinine 1.39 H (0.52-1.04) mg/dL Estimated GFR 41 L (>60) mL/min BUN/Creatinine Ratio 23.0 H (6-22) Glucose 234 H (80-110) mg/dL Calcium 10.1 (8.4-10.2) mg/dL Magnesium 2.0 (1.6-2.3) mg/dL Total Bilirubin 0.7 (0.2-1.3) mg/dL AST 24 (14-36) IU/L ALT 25 (<35) IU/L Alkaline Phosphatase 75 (38-126) U/L Total Creatine Kinase 213 H (30-135) U/L Troponin I < 0.012 < 0.012 (0.01-0.034) ng/mL NT-Pro-B Natriuret Pep 275 H (<125) pg/mL Total Protein 7.1 (6.3-8.2) g/dL Albumin 4.4 (3.5-5.0) g/dL Globulin 2.7 (1.7-4.1) g/dL Albumin/Globulin Ratio 1.6 (1.0-2.8) Lipase 342 H (23-300) U/L Urine RBC None seen (0-5/HPF) Urine WBC 1-5/hpf (0-5/HPF) Ur Squamous Epith Cells 0-1 /hpf (0-5/HPF) Amorphous Sediment 1+ Urine Bacteria None seen (None) Vol Urine Centrifuged 10ml (spun) Urine Dip Bedside Urine Glucose Negative Bedside Urine Bilirubin - Negative Bedside Urine Ketone - Negative Urine Specific [place] 1.020 Bedside Urine Occult Blood + Bedside Urine pH 6.0 Bedside Urine Protein ++ 100 Bedside Urine Urobilinogen - Negative Bedside Urine Nitrite - Negative Bedside Urine Leukocytes - Negative Esterase ECG Data Attestation: I personally reviewed and interpreted this ECG as follows: Interpretation: Normal sinus rhythm with rate 72, LA 132, QRS 96, QTC 448. [facility] Narrative Medical decision making narrative: 73-year-old female with history of diabetes with nausea and vomiting, dizziness non vertiginous, no injury or trauma, afebrile, sirs screen negative. Nonfocal neuro exam. Screening EKG without any ischemic changes. Glucose 234, anion gap normal, serum CO2 28, not in diabetic ketoacidosis. She does not seem to recognize diagnosis of diabetic gastroparesis. White blood cell count [id number]. Urinalysis negative. Chest x-ray unremarkable. EKG without obvious ischemic changes. CT head requested. CT abdomen and pelvis requested. CT head no acute changes, see radiology report. CT abdomen pelvis no acute changes, see radiology report. EKG and serial troponins negative. Able to take oral fluids, consider diabetic gastropareesis, trial of Reglan, sent to her pharmacy. Improved, home with family Discharge Plan Departure Patient Disposition: Home Clinical Impression: Nausea & vomiting, History of diabetes mellitus Activity Restrictions/Additional Instructions: History of diabetes, nausea and vomiting, no headache symptoms, labs not suggestive of diabetic ketoacidosis, no evidence for urinary tract infection seems obvious. IV fluids and antinausea medication given. CT head and CT abdominal imaging studies unrevealing. EKG and blood testing not suggestive of heart attack. It is possible have nausea and vomiting from diabetic gastroparesis, complication of longstanding diabetes. Sometimes a medication called metoclopramide/Reglan can be helpful for control of this form of nausea and vomiting. Trial of Reglan to see if that controls her nausea and vomiting.. If you have any side effects of the medication. If you tolerate that trial in need further medication, consider refills with your regular provider. Recheck symptoms with your regular provider in the next couple of days. Return earlier to this/nearest emergency department for any change worsening symptoms or any concerns prior Prescriptions: New metoclopramide HCl [Reglan] 10 mg tablet 10 mg PO QACHS Qty: 20 0RF No Action losartan 50 mg tablet 50 mg PO DAILY rosuvastatin 10 mg tablet 10 mg PO DAILY Apidra U-100 Insulin 100 unit/mL solution 12 unit SUBCUT QAM Apidra U-100 Insulin 100 unit/mL solution 18 unit SUBCUT QPM insulin glargine 100 unit/mL cartridge 50 unit SUBCUT BID Trulicity 1.5 mg/0.5 mL pen injector 1.5 mg SUBCUT QWEEK albuterol sulfate 90 mcg/actuation HFA aerosol inhaler 2 puff inhalation Q4-6H PRN Referrals: Asya Pardo PA-C [Primary Care Provider] - Stand Alone Forms: Patient Portal/API
--- NOTE | 2023-12-16 17:23 | DI.CT.S_ITS ---
PROCEDURE: CT ABDOMEN PELVIS W CON INDICATIONS: N/V, lipase elevated TECHNIQUE: After the administration of intravenous contrast, axial sections acquired from the lung bases to the pubic symphysis. Coronal and sagittal reformats were performed. For radiation dose reduction, the following was used: automated exposure control, adjustment of mA and/or kV according to patient size. COMPARISON: None. FINDINGS: Image quality: Diagnostic. Lower Chest: No acute abnormality. ABDOMEN: Liver: No solid mass. Gallbladder: No radiopaque gallstones or wall thickening. Biliary ducts: No biliary dilation. Pancreas: No ductal dilation. Spleen: Size is within normal limits. Adrenal Glands: No adrenal nodules. 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 There is a 9 mm stone within the right renal collecting system which is nonobstructing. Multiple renal cortical cysts are shown, the majority of which are subcentimeter and too small to adequately characterize. The largest measures 3.2 cm. There is no hydronephrosis. Stomach and Bowel: Normal colonic caliber, without significant wall thickening. Peritoneum: No abnormal intraperitoneal fluid. No free air. Ventral Wall: No significant ventral hernia. Abdominal Nodes: No retroperitoneal or mesenteric adenopathy by size criteria. Vessels: Aorta and inferior vena cava are normal in size. PELVIS: Pelvic Organs: Unremarkable. Bladder: No bladder wall thickening, accounting for underdistention. Pelvic Nodes: No enlarged lymph nodes. Miscellaneous: No inguinal hernias are seen. Bones: No aggressive osseous abnormality. IMPRESSION: No CT evidence for the etiology of the patient's symptoms. Specifically, no appendicitis, obstruction, diverticulitis, or obstructive uropathy. Of note, CT is relatively insensitive for pancreatitis and a normal CT does not rule out acute pancreatitis. Dictated by: Yennifer Bahena M.D. on 12/16/2023 at 17:13 Approved by: Yennifer Bahena M.D. on 12/16/2023 at 17:19
--- NOTE | 2023-12-16 17:24 | DI.CT.S_ITS ---
PROCEDURE: CT HEAD/BRAIN WO CON INDICATIONS: N/V TECHNIQUE: Noncontrast 4.5 mm thick angled axial sections acquired from the foramen magnum to the vertex, with coronal and sagittal reformats. For radiation dose reduction, the following was used: automated exposure control, adjustment of mA and/or kV according to patient size. COMPARISON: None. FINDINGS: Image quality: Diagnostic. CSF spaces: Basal cisterns are patent. No extra-axial fluid collections. The ventricles are symmetric in size and shape. Brain: No intracranial bleeds or masses. Right superior cerebellar encephalomalacia is shown. There is cerebral volume loss for age, with resultant ventricular and sulcal prominence. There are periventricular and deep white matter chronic small vessel ischemic changes. There is intracranial internal carotid artery atherosclerosis. Skull and face: Calvarium and visualized facial bones appear intact, without suspicious lesions. Sinuses: There is a large left maxillary retention cyst. Visualized sinuses and mastoids are underlying clear. IMPRESSION: No acute intracranial pathology. Dictated by: Yennifer Bahena M.D. on 12/16/2023 at 17:20 Approved by: Yennifer Bahena M.D. on 12/16/2023 at 17:24
[2023-12-16 17:48] LABS: RBC Urine None Seen (0-5/HPF); Squamous Epithelial Cell Urine 0-1 /HPF (0-5/HPF); Urine Volume 10mL (spun); WBC Urine 1-5/HPF (0-5/HPF)
[2023-12-16 17:49] LABS: Amorphous Sediment Urine 1+; Bacteria Urine None Seen
[2023-12-16 18:13] LABS: Troponin I < 0.012 ng/mL (0.01-0.034)
== END 2023-12-16 19:37 | disposition home or self-care (01) ==
PROVIDERS: Emergency Provider Emergency Medicine; PCP Physician Assistant Medical
DX: R11.2 Nausea with vomiting, unspecified (principal); R42 Dizziness and giddiness; E11.9 Type 2 diabetes mellitus without complications; Z79.899 Other long term (current) drug therapy
CPT/HCPCS: 36415; 70450; 71045; 74177; 80053; 81003; 81015; 82550; 83690; 83735; 83880; 84484; 85025; 85610; 85730; 87086; 93005; 96361; 96374; 99284; J2405; Q9967

== ENCOUNTER 2023-12-22 13:13 | Emergency (ER) | payer MEDICARE, OTHER, SELFPAY ==
[2020-12-01 18:25] VITALS: PULSE 79; RESP 38; O2SAT 94
[2023-12-22] VITALS (8 sets, daily range): BP systolic 138–183; BP diastolic 77–96; PULSE 64–88; RESP 18; TEMP 36.6–36.7; O2SAT 93–96; BMI 31.2
--- NOTE | 2023-12-22 13:29 | ED_ITS ---
HPI - Abdominal Pain General Chief Complaint: Nausea/Vomiting/Diarrhea Stated Complaint: Returning; Nausea, Spitting up blood Time Seen by Provider: 12/22/23 13:21 History of Present Illness HPI narrative: Patient is a 73-year-old female type 2 diabetes on insulin history of asthma presenting today with ongoing nausea and cough. She was seen evaluated here on December 15 had a workup, which included abdominal CT which showed a right renal stone chest x-ray possible pneumonia head CT and blood work. She was prescribed Reglan she reports she has been nauseous ever since. She is decreased appetite decreased fluid intake. She followed up with primary care provider who ordered outpatient blood work report she still having a productive cough no fevers chills or sore throat. She is some mild abdominal discomfort she has not vomited but continues to feel nauseous. Related Data Home Medications Medication Instructions Recorded Confirmed albuterol sulfate 90 mcg/actuation 2 puff inhalation Q4-6H PRN 03/14/23 05/29/23 aerosol inhaler dulaglutide 1.5 mg/0.5 mL 1.5 mg SUBCUT QWEEK 03/14/23 05/29/23 subcutaneous pen injector (Trulicity) insulin glargine 100 unit/mL 50 unit SUBCUT BID 03/14/23 05/29/23 subcutaneous cartridge insulin glulisine U-100 100 12 unit SUBCUT QAM 03/14/23 05/29/23 unit/mL subcutaneous solution (Apidra U-100 Insulin) insulin glulisine U-100 100 18 unit SUBCUT QPM 03/14/23 05/29/23 unit/mL subcutaneous solution (Apidra U-100 Insulin) losartan 50 mg tablet 50 mg PO DAILY 03/14/23 05/29/23 rosuvastatin 10 mg tablet 10 mg PO DAILY 03/14/23 05/29/23 Previous Rx's Medication Instructions Recorded metoclopramide HCl 10 mg tablet 10 mg PO QACHS #20 tabs 12/16/23 (Reglan) doxycycline hyclate 100 mg capsule 100 mg PO BID #10 caps 12/22/23 promethazine 25 mg tablet 25 mg PO Q6H PRN nausea and 12/22/23 vomiting #10 tabs Allergies Allergy/AdvReac Type Severity Reaction Status Date / Time cephalexin [From KEFLEX] Allergy Intermediate HIVES Verified 12/16/23 14:48 Patient History Medical History COVID-19 Diabetes Hyperlipidemia Hypertension Social History Smoking Status: Never smoker Smoking Status: Never smoker Substance Use Type: does not use Exam Initial Vital Signs Initial Vital Signs: Vital Signs Pulse Rate 88 12/22/23 13:23 Blood Pressure 138/78 12/22/23 13:23 Pulse Oximetry 95 12/22/23 13:23 GENERAL: Alert well-appearing 73-year-old female and in no acute distress. HEENT: Head atraumatic,EOMI, pupils reactive, face symmetric, moist mucous membranes CARDIOVASCULAR: Regular rate and rhythm without murmurs, rubs or gallops. RESPIRATORY: Breath sounds equal bilaterally, no wheezes rales or rhonchi. No conversational dyspnea ABDOMEN: Soft, minimally tender but no localization no distention : No CVA tenderness EXTREMITIES: Normal range of motion, no clubbing or edema. Neurovascularly intact NEUROLOGICAL: Alert and oriented x4.Normal gait and speech. SKIN: Warm, dry, no laceration, no petechiae, no rashes or lesions. Course Orders Ordered: ED Orders 12/22/23 13:34 Chest [XR chest 1V] Stat EKG-12 Lead Stat 12/22/23 13:38 CBC Auto Diff [Complete Blood Count AUTO DIFF] Stat CMP [Comprehensive Metabolic Panel] Stat Lipase Stat Troponin & CK Cardiac Panel Stat Discontinued Medications Sodium Chloride (Normal Saline 0.9%) 1,000 mls @ 1,000 mls/hr IV BOLUS ONE Stop: 12/22/23 14:33 Last Infusion: 12/22/23 14:51 Dose: Infused Documented By: Admin: 12/22/23 13:44 Dose: 1,000 mls/hr Documented By: FIDEL Ondansetron HCl (Ondansetron 4 Mg/2 Ml Inj) 4 mg IV NOW ONE Stop: 12/22/23 13:35 Last Admin: 12/22/23 13:45 Dose: 4 mg Documented By: FIDEL Vital Signs Vital signs: Vital Signs - 8 hr 12/22/23 13:23 12/22/23 13:23 12/22/23 13:26 Temperature 97.8 F Pulse Rate 88 84 Respiratory Rate 18 Blood Pressure 138/78 138/78 Pulse Oximetry 95 96 Oxygen Delivery Method Room Air 12/22/23 13:30 12/22/23 13:30 12/22/23 14:00 Temperature Pulse Rate 74 Respiratory Rate Blood Pressure 142/83 H 142/77 H Pulse Oximetry 95 Oxygen Delivery Method 12/22/23 14:00 12/22/23 14:30 12/22/23 14:30 Temperature Pulse Rate 68 65 Respiratory Rate Blood Pressure 160/82 H Pulse Oximetry 93 94 Oxygen Delivery Method 12/22/23 15:00 12/22/23 15:00 12/22/23 15:18 Temperature Pulse Rate 64 Respiratory Rate Blood Pressure 183/96 H Pulse Oximetry 96 95 Oxygen Delivery Method 12/22/23 15:21 Temperature 98.1 F Pulse Rate Respiratory Rate Blood Pressure 161/95 H Pulse Oximetry Oxygen Delivery Method MDM - Abdominal Pain Lab Data 12/22/23 13:38 12/22/23 13:38 Labs: Lab Results 12/22/23 Range/Units 13:38 WBC 15.3 H (4.5-11.0) X10^3/uL RBC 4.71 (4.0-5.2) X10^6/uL Hgb 14.1 (12.0-16.0) g/dL Hct 41.3 (36-46) % MCV 87.7 (80-100) fL MCH 29.8 (26-34) PG MCHC 34.0 (30-36) % RDW 12.8 (11.6-14.8) % Plt Count 330 (150-400) X10^3/uL Neut % (Auto) 70.7 (50-75) % Lymph % (Auto) 21.1 L (25-40) % [place] % (Auto) 6.8 (3-14) % Eos % (Auto) 0.5 L (2-4) % Baso % (Auto) 0.9 (0-2) % Neut # (Auto) 85074 H (6645-8632) /uL Lymph # (Auto) 3200 (5162-8292) /uL [place] # (Auto) 1000 H (0-900) /uL Eos # (Auto) 100 (0-450) /uL Baso # (Auto) 100 (0-100) /uL Sodium 135 L (137-145) mmol/L Potassium 4.0 (3.4-5.1) mmol/L Chloride 102 (98-107) mmol/L Carbon Dioxide 25 (22-32) mmol/L BUN 24 H (7-17) mg/dL Creatinine 1.21 H (0.52-1.04) mg/dL Estimated GFR 48 L (>60) mL/min BUN/Creatinine Ratio 19.8 (6-22) Glucose 152 H (80-110) mg/dL Calcium 9.9 (8.4-10.2) mg/dL Total Bilirubin 0.9 (0.2-1.3) mg/dL AST 25 (14-36) IU/L ALT 21 (<35) IU/L Alkaline Phosphatase 73 (38-126) U/L Total Creatine Kinase 79 (30-135) U/L Troponin I < 0.012 (0.01-0.034) ng/mL Total Protein 7.1 (6.3-8.2) g/dL Albumin 4.1 (3.5-5.0) g/dL Globulin 3.0 (1.7-4.1) g/dL Albumin/Globulin Ratio 1.4 (1.0-2.8) Lipase 217 (23-300) U/L Imaging Data Chest x-ray: Radiologist's Impression: PROCEDURE: XR CHEST 1V INDICATIONS: cough TECHNIQUE: One view of the chest was acquired. COMPARISON: [facility], , XR CHEST 1V, 12/16/2023, 14:48. FINDINGS: Surgical changes and devices: None. Lungs and pleura: Low lung volumes. Mild diffuse interstitial prominence. Streaky bibasilar opacities likely representing atelectasis. No new dense consolidation identified. No pneumothorax. No substantial pleural effusion. Mediastinum: Mediastinal contours appear normal. Heart size is normal. Bones and chest wall: No suspicious bony lesions. Overlying soft tissues appear unremarkable. IMPRESSION: Low lung volumes. Diffuse interstitial prominence is nonspecific and may represent an infectious or inflammatory process versus pulmonary edema. Findings may be accentuated by low lung volumes. No focal consolidation seen. Recommend dedicated upright PA and lateral views of the chest when patient is able for further evaluation. Dictated by: Mikel Orellana M.D. on 12/22/2023 at 13:13 ECG Data Attestation: I personally reviewed and interpreted this ECG as follows: Prior ECG tracings: available for review Interpretation: Normal sinus rhythm rate 70 SC interval 122 QRS 106 QTC [address] changes MDM Narrative Medical decision making narrative: Patient is 73-year-old female insulin-dependent diabetes presenting today with on going nausea. No vomiting. She is some mild abdominal discomfort but had a CT last week was normal except that she does have a right renal stone. She has no flank pain. She does have a cough no significant shortness of breath or chest pain. X-ray from last week showed possible right lower lobe pneumonia versus an effusion Blood work has been reviewed she does have leukocytosis of 15.3 was previously 14.1 with mild left shift, creatinine has improved from last time today is 1.21 previously 1.39 sodium potassium and other electrolytes are within normal rang, troponin is negative lipase negative No evidence of DKA X-ray again shows low lung volumes and nonspecific changes maybe pulmonary edema versus inflammation She had a BNP last week that was 275 Patient has leukocytosis a cough possible pneumonia on x-ray ongoing nausea I do think maybe okay to treat her for an atypical pneumonia. She is nontoxic not hypoxic overall appears well. She reports that Zofran worked much better than Reglan for her. However she reports that she previously had Zofran she stopped responding to it and put her in the hospital. She says Reglan is no longer working for her. Will try Phenergan. She is staying hydrated her renal function has improved. X-ray difficult to tell if she has a pneumonia but she does have a cough she has ongoing leukocytosis. She previously had an abdominal CT and head CT and full workup I do not see need for repeating that. She reports that she had COVID and had pneumonia and has some ongoing scarring in her lungs. It is possible that is what is on the x-ray now. However no other cause of on going nausea is identified. Will put her on 5 days of doxycycline Discharge Plan Departure Patient Disposition: Home Clinical Impression: Pneumonia Instructions: Atypical Pneumonia Activity Restrictions/Additional Instructions: *You have been diagnosed with pneumonia *What to do: You have a very mild atypical pneumonia on her x-ray. I think reasonable to treat you with antibiotics to see if it helps her nausea *Continue to take medications as directed Phenergan 25 mg every 6 hours if needed for nausea. This does cause sleepiness Doxycycline 100 mg twice a day for 5 days *Follow up with your primary care provider in 2-3 days or call [phone] *Return to ER if you should have increasing vomiting chest pain cough fever or any new, worsening or concerning symptoms Prescriptions: New doxycycline hyclate 100 mg capsule 100 mg PO BID Qty: 10 0RF promethazine 25 mg tablet 25 mg PO Q6H PRN (Reason: nausea and vomiting) Qty: 10 0RF No Action metoclopramide HCl [Reglan] 10 mg tablet 10 mg PO QACHS Qty: 20 0RF losartan 50 mg tablet 50 mg PO DAILY rosuvastatin 10 mg tablet 10 mg PO DAILY Apidra U-100 Insulin 100 unit/mL solution 12 unit SUBCUT QAM Apidra U-100 Insulin 100 unit/mL solution 18 unit SUBCUT QPM insulin glargine 100 unit/mL cartridge 50 unit SUBCUT BID Trulicity 1.5 mg/0.5 mL pen injector 1.5 mg SUBCUT QWEEK albuterol sulfate 90 mcg/actuation HFA aerosol inhaler 2 puff inhalation Q4-6H PRN Referrals: Asya Pardo PA-C [Primary Care Provider] - Stand Alone Forms: Patient Portal/API
--- NOTE | 2023-12-22 13:34 | DI.RAD.S_ITS ---
PROCEDURE: XR CHEST 1V INDICATIONS: cough TECHNIQUE: One view of the chest was acquired. COMPARISON: [facility], CR, XR CHEST 1V, 12/16/2023, 14:48. FINDINGS: Surgical changes and devices: None. Lungs and pleura: Low lung volumes. Mild diffuse interstitial prominence. Streaky bibasilar opacities likely representing atelectasis. No new dense consolidation identified. No pneumothorax. No substantial pleural effusion. Mediastinum: Mediastinal contours appear normal. Heart size is normal. Bones and chest wall: No suspicious bony lesions. Overlying soft tissues appear unremarkable. IMPRESSION: Low lung volumes. Diffuse interstitial prominence is nonspecific and may represent an infectious or inflammatory process versus pulmonary edema. Findings may be accentuated by low lung volumes. No focal consolidation seen. Recommend dedicated upright PA and lateral views of the chest when patient is able for further evaluation. Dictated by: Mikel Orellana M.D. on 12/22/2023 at 13:13 Approved by: Mikel Orellana M.D. on 12/22/2023 at 13:14
[2023-12-22] MEDS: SODIUM CHLORIDE 0.9% 1,000 ML 1000 ML IV (13:44)
[2023-12-22] MEDS: ONDANSETRON 4 MG/2 ML INJ IV (13:45)
[2023-12-22 13:47] LABS: Add Manual Diff / Slide Review NO; Basophils Absolute Auto 100 /uL (0-100); Basophils Percent Auto 0.9 % (0-2); Eosinophils Absolute Auto 100 /uL (0-450); Eosinophils Percent Auto 0.5 % (2-4); Hematocrit 41.3 % (36-46); Hemoglobin 14.1 g/dL (12.0-16.0); Lymphocytes Absolute Auto 3200 /uL (1100-4500); Lymphocytes Percent Auto 21.1 % (25-40); Mean Corpuscular Hemoglobin 29.8 PG (26-34); Mean Corpuscular Volume 87.7 fL (80-100); Monocytes Absolute Auto 1000 /uL (0-900); Monocytes Percent Auto 6.8 % (3-14); Neutrophils Absolute Auto 10800 /uL (1500-7000); Neutrophils Percent Auto 70.7 % (50-75); Platelet Count 330 X10^3/uL (150-400); Red Blood Cell Count 4.71 X10^6/uL (4.0-5.2); Red Cell Distribution Width 12.8 % (11.6-14.8); White Blood Cell Count 15.3 X10^3/uL (4.5-11.0)
--- NOTE | 2023-12-22 13:47 | EKG_ITS ---
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
[2023-12-22 14:08] LABS: Alanine Aminotransferase 21 IU/L (<35); Albumin 4.1 g/dL (3.5-5.0); Albumin Globulin Ratio 1.4 (1.0-2.8); Alkaline Phosphatase 73 U/L (38-126); Aspartate Aminotransferase 25 IU/L (14-36); BUN Creatinine Ratio 19.8 (6-22); Bilirubin Total 0.9 mg/dL (0.2-1.3); Blood Urea Nitrogen 24 mg/dL (7-17); Calcium 9.9 mg/dL (8.4-10.2); Carbon Dioxide 25 mmol/L (22-32); Chloride 102 mmol/L (98-107); Creatine Kinase 79 U/L (30-135); Estimated Glomerular Filt Rate 48 mL/min (>60); Glucose 152 mg/dL (80-110); HEMOLYSIS < 15 (0-50); Lipase 217 U/L (23-300); Sodium 135 mmol/L (137-145); Total Protein 7.1 g/dL (6.3-8.2)
[2023-12-22 14:18] LABS: Troponin I < 0.012 ng/mL (0.01-0.034)
== END 2023-12-22 15:25 | disposition home or self-care (01) ==
PROVIDERS: Emergency Provider Emergency Medicine; PCP Physician Assistant Medical
DX: J18.9 Pneumonia, unspecified organism (principal); R10.9 Unspecified abdominal pain; R05.9 Cough, unspecified
CPT/HCPCS: 36415; 71045; 80053; 82550; 83690; 84484; 85025; 93005; 96361; 96374; 99284; J2405